=== PATIENT | male | born 1965 | race Caucasian/White ===

== ENCOUNTER 2017-05-11 12:25 | Emergency (ER) | payer OTHER ==
[~2017-05-11] VITALS: Ht 157.5 cm; Wt 70.8 kg
[2017-05-11 12:26] VITALS: TEMP 36.9; Ht 157.5 cm; Wt 70.8 kg
[2017-05-11] MEDS ORDERED: SUMA50TA15 PO (12:42)
[2017-05-11] MEDS ORDERED: NAPR-1169 PO (12:42)
[2017-05-11] MEDS ORDERED: ATV/1 PO (12:42)
[2017-05-11] MEDS ORDERED: LISI40TA PO (12:42)
[2017-05-11] MEDS ORDERED: GABA-112 PO (12:49)
[2017-05-11] MEDS ORDERED: PRLSR20 PO (12:49)
--- NOTE | 2017-05-11 12:59 | EMERGENCY ROOM VISIT NOTE ---
History Report prepared by Soumya: Dede Gong Under the Supervision of: Dr. Althea Haney M.D. First contact with patient: 12:36 Chief Complaint: HEADACHE Stated Complaint: MIGRAINE, FACIAL NUMBNESS History of Present Illness The patient is a 52 year old male who presents to the Emergency Room with complaints of a persistent migraine-headache that began several days ago. He currently rates his discomfort as an 8/10 in severity. The patient states that he was recently evaluated in [facility] for his symptoms. He states that his symptoms began with a migraine-headache, and his pain radiated down the left side of his face, down, his left neck, into his left chest. The patient additionally notes blurry vision and numbness in his face and hands. He states that while he was evaluated in [facility] Emergency Department he had an EKG, MRI, CT, and blood work that all came back normal. The patient states that his pain persisted and has experienced a facial droop. He states that he talked to his sister who suggested the possibility of a bulging disc or Raymond Palsy. The patient denies any recent tick bites. The patient's states that upon discharge, the patient was told if his symptoms worsen he was to come to [facility] Emergency Department for further evaluation. She additionally notes that the patient was told that he was to tell [facility] that he is to see a Neurologist. The patient's notes that the patient has had significant weakness as well. Source of History: patient, spouse/significant other () Onset: several days ago Position: head Symptom Intensity: 8/10 Quality: other (migrane-headache) Timing: other (persistent) Associated Symptoms: + neck pain, + chest pain, + weakness, + numbness ( facial and hand) Note: Associated Symptoms: blurred vision Review of Systems See HPI for pertinent positives & negatives. A total of 10 systems reviewed and were otherwise negative. Past Medical & Surgical Medical Problems: (1) Hypertension Surgical Problems: (1) History of back surgery Family History Cancer Heart disease Hypertension Social History Smoking Status: Never Smoker Smokeless Tobacco Use: Yes Alcohol Use: occasionally Marital Status: Housing Status: lives with significant other Occupation Status: employed Current/Historical Medications Scheduled Gabapentin (Neurontin), 100 MG PO HS Lisinopril (Zestril), 40 MG PO DAILY Naproxen (Naprosyn), 500 MG PO BID Omeprazole (Prilosec), 20 MG PO DAILY Scheduled PRN Lorazepam (Ativan), 1 MG PO Q6H PRN for Anxiety Sumatriptan Succinate (Imitrex), 50 MG PO Q2H PRN for Migraine Allergies Coded Allergies: Morphine (Unverified Allergy, Severe, STOPS HEART, 05/11/17) Physical Exam Vital Signs Date Time Temp Pulse Resp B/P (MAP) Pulse Ox O2 Delivery O2 Flow Rate FiO2 05/11/17 14:13 67 16 187/116 99 Room Air 05/11/17 12:26 36.9 94 22 165/99 100 Room Air Physical Exam Vital signs reviewed. General: Well-appearing male, in no significant distress. HEENT: No scleral icterus, PERRLA, neck supple. Atraumatic. Cardiovascular: Regular rate and rhythm, no extra sounds. Pulmonary: Clear to auscultation bilaterally, normal work of breathing. Abdomen: Soft, nontender, nondistended, positive bowel sounds. Musculoskeletal: Atraumatic, no peripheral edema. Neurologic: Patient awake alert and oriented x 3, full strength in all 4 extremities. Cranial nerves 2 through 12 grossly intact. Negative drift to the bilateral upper extremities. No appreciable facial droop. Skin: Warm, dry, no rash Medical Decision & Procedures ER Provider Diagnostic Interpretation: CT results as stated below per my review and radiologist interpretation: HEAD WITHOUT CONTRAST (CT) CT DOSE: 537.48 mGy.cm HISTORY: Mental status change CVA sx TECHNIQUE: Multiaxial CT images of the head were performed without the use of intravenous contrast. A dose lowering technique was utilized adhering to the principles of ALARA. Comparison: None. Findings: The paranasal sinuses and mastoid air cells are clear. The calvarium and skull base are intact. The ventricles and sulci are within normal limits. There is no mass, hematoma, midline shift, or acute infarct. Impression: No acute intracranial abnormality. The above report was generated using voice recognition software. It may contain grammatical, syntax or spelling errors. Electronically signed by: Hussein Muñiz M.D. 05/11/2017 1:53 PM Dictated Date/Time: 05/11/2017 1:52 PM Laboratory Results 05/11/17 13:10 Red Blood Count 4.72, Mean Corpuscular Volume 93.9, Mean Corpuscular Hemoglobin 35.4, Mean Corpuscular Hemoglobin Concent 37.7, Mean Platelet Volume 9.2, Neutrophils (%) (Auto) 75.3, Lymphocytes (%) (Auto) 13.4, Monocytes (%) (Auto) 9.0, Eosinophils (%) (Auto) 1.7, Basophils (%) (Auto) 0.3, Neutrophils # (Auto) 5.75, Lymphocytes # (Auto) 1.02, Monocytes # (Auto) 0.69, Eosinophils # (Auto) 0.13, Basophils # (Auto) 0.02 05/11/17 13:10 Test 05/11/17 13:10 05/11/17 13:12 White Blood Count 7.63 K/uL (4.8-10.8) Red Blood Count 4.72 M/uL (4.7-6.1) Hemoglobin 16.7 g/dL (14.0-18.0) Hematocrit 44.3 % (42-52) Mean Corpuscular Volume 93.9 fL (80-100) Mean Corpuscular Hemoglobin 35.4 pg (25-34) Mean Corpuscular Hemoglobin Concent 37.7 g/dl (32-36) Platelet Count 232 K/uL (130-400) Mean Platelet Volume 9.2 fL (7.4-10.4) Neutrophils (%) (Auto) 75.3 % Lymphocytes (%) (Auto) 13.4 % Monocytes (%) (Auto) 9.0 % Eosinophils (%) (Auto) 1.7 % Basophils (%) (Auto) 0.3 % Neutrophils # (Auto) 5.75 K/uL (1.4-6.5) Lymphocytes # (Auto) 1.02 K/uL (1.2-3.4) Monocytes # (Auto) 0.69 K/uL (0.11-0.59) Eosinophils # (Auto) 0.13 K/uL (0-0.5) Basophils # (Auto) 0.02 K/uL (0-0.2) RDW Standard Deviation 43.1 fL (36.4-46.3) RDW Coefficient of Variation 12.5 % (11.5-14.5) Immature Granulocyte % (Auto) 0.3 % Immature Granulocyte # (Auto) 0.02 K/uL (0.00-0.02) Erythrocyte Sedimentation Rate 12 mm/hr (0-14) Anion Gap 8.0 mmol/L (3-11) Est Creatinine Clear Calc Drug Dose 63.6 ml/min Estimated GFR () 81.2 Estimated GFR (Non- 70.1 BUN/Creatinine Ratio 11.2 (10-20) Calcium Level 9.2 mg/dl (8.5-10.1) Magnesium Level 2.4 mg/dl (1.8-2.4) Total Bilirubin 0.5 mg/dl (0.2-1) Direct Bilirubin 0.1 mg/dl (0-0.2) Aspartate Amino Transf (AST/SGOT) 17 U/L (15-37) Alanine Aminotransferase (ALT/SGPT) 26 U/L (12-78) Alkaline Phosphatase 81 U/L (45-117) Total Creatine Kinase 68 U/L (39-308) Creatine Kinase MB < 0.5 ng/ml (0.5-3.6) Creatine Kinase MB Ratio (0-3.0) C-Reactive Protein < 0.29 mg/dl (0-0.29) Total Protein 8.5 gm/dl (6.4-8.2) Albumin 4.2 gm/dl (3.4-5.0) Lyme Disease IgG Antibody NEG (NEG) Lyme Disease IgM Antibody NEG (NEG) Bedside Troponin I < 0.030 ng/ml (0-0.045) Laboratory results per my review. ECG Indication: chest pain Rate (beats per minute): 70 Rhythm: normal sinus Findings: no acute ischemic change, no ectopy ED Course 1244: Past medical records reviewed. The patient was evaluated in room B10. A complete history and physical examination was performed. 1419: I reevaluated the patient and he is resting. I discussed the exam findings with him and I discussed the treatment plan. He states that he did not take his Lisinopril this morning. He had the bottle with him and he took it while I was at the bedside. He verbalized complete understanding and agreement. He is ready to go home. Medical Decision Differential diagnosis Intracranial hemorrhage, intracranial mass, migraine headache, tension headache , sinusitis, meningitis, acute coronary syndrome, cardiac arrhythmia This patient was evaluated and appeared to be in no significant distress. IV access was obtained and laboratory work was drawn. The patient was placed on the school lunch monitor and found to be in a normal sinus rhythm. Records from [facility] admission yesterday were reviewed. The patient had extensive workup including head CTs, CT angios of the head and neck, MRI of the head. EKGs were unremarkable, cardiac enzymes were normal. At this time the patient had a repeat head CT as his states he had a new facial droop today. This was not appreciated on exam. Patient's evaluation is completely negative including sedimentation rate, CRP and Lyme screen. He was discharged to follow-up with his primary care physician this week as scheduled. Of note the patient is markedly hypertensive, stating he did not take his 40 mg of lisinopril today. His had in her purse and he took 1 pill in my presence. The importance of medication compliance was reiterated with the patient and his . He was encouraged to stop using tobacco. He will return to the ER for worsening of symptoms or any medical concerns. Medication Reconcilliation Current Medication List: was personally reviewed by me Blood Pressure Screening Patient's blood pressure: Elevated blood pressure Blood pressure disposition: Elevated BP felt to be situational (because he is not compliant with his blood pressure medications.) Impression Primary Impression: Substernal chest pain Additional Impressions: Paresthesia of hand, bilateral Left facial numbness Scribe Attestation The scribe's documentation has been prepared under my direction and personally reviewed by me in its entirety. I confirm that the note above accurately reflects all work, treatment, procedures, and medical decision making performed by me. Departure Information Dispostion Home / Self-Care Referrals No Doctor, Assigned (PCP) Forms HOME CARE DOCUMENTATION FORM, IMPORTANT VISIT INFORMATION Patient Instructions My [facility] Additional Instructions Diagnosis: Substernal chest pain, Headache Tylenol 650 mg every 6 hours as needed for pain. Continue other medications as prescribed by [facility]. Follow-up with your primary care physician this week as scheduled. Return to the ER for worsening of symptoms or any medical concerns. Problem Qualifiers
[2017-05-11 13:26] LABS: BASO % 0.3 %; BASO ABS # 0.02 K/uL (0-0.2); COMPLETE YES; EOS % 1.7 %; HEMATOCRIT 44.3 % (42-52); IG% 0.3 %; LYMPH % 13.4 %; LYMPH ABS # 1.02 K/uL (1.2-3.4); MEAN CELL VOLUME 93.9 fL (80-100); MEAN CORPUSCULAR HEMOGLOBIN 35.4 pg (25-34); MEAN CORPUSCULAR HGB CONC 37.7 g/dl (32-36); MEAN PLATELET VOLUME 9.2 fL (7.4-10.4); NEUT % 75.3 %; PLATELET COUNT 232 K/uL (130-400); RED BLOOD COUNT 4.72 M/uL (4.7-6.1); WHITE BLOOD COUNT 7.63 K/uL (4.8-10.8)
[2017-05-11 13:47] LABS: ALT/SGPT 26 U/L (12-78); BLOOD UREA NITROGEN 13 mg/dl (7-18); BUN/CREATININE RATIO 11.2 (10-20); C-REACTIVE PROTEIN < 0.29 mg/dl (0-0.29); CALCIUM 9.2 mg/dl (8.5-10.1); CARBON DIOXIDE 27 mmol/L (21-32); CHLORIDE 102 mmol/L (98-107); GLUCOSE 87 mg/dl (70-99); MAGNESIUM 2.4 mg/dl (1.8-2.4); POTASSIUM 4.1 mmol/L (3.5-5.1); SODIUM 137 mmol/L (136-145)
[2017-05-11 13:50] LABS: ALKALINE PHOSPHATASE 81 U/L (45-117); AST/SGOT 17 U/L (15-37)
--- NOTE | 2017-05-11 13:54 | DIAGNOSTIC IMAGING REPORT ---
HEAD WITHOUT CONTRAST (CT) CT DOSE: 537.48 mGy.cm HISTORY: Mental status change CVA sx TECHNIQUE: Multiaxial CT images of the head were performed without the use of intravenous contrast. A dose lowering technique was utilized adhering to the principles of ALARA. Comparison: None. Findings: The paranasal sinuses and mastoid air cells are clear. The calvarium and skull base are intact. The ventricles and sulci are within normal limits. There is no mass, hematoma, midline shift, or acute infarct. Impression: No acute intracranial abnormality. The above report was generated using voice recognition software. It may contain grammatical, syntax or spelling errors. Electronically signed by: Hussein Muñiz M.D. 05/11/2017 1:53 PM Dictated Date/Time: 05/11/2017 1:52 PM
[2017-05-11 14:13] VITALS: BP 187/116; PULSE 67; O2SAT 99
[2017-05-11 14:22] LABS: LYME DISEASE AB IGG NEG (NEG); LYME DISEASE AB IGM NEG (NEG)
== END 2017-05-11 14:50 | disposition home or self-care (01) ==
LOC: C.EDB 12:25
DX: R07.2 Precordial pain (principal); R20.2 Paresthesia of skin; I10 Essential (primary) hypertension; Z79.899 Other long term (current) drug therapy; Z88.5 Allergy status to narcotic agent; Z80.9 Family history of malignant neoplasm, unspecified; Z82.49 Family history of ischemic heart disease and other diseases of the circulatory system